=== PATIENT | female | born 1960 | race Caucasian/White ===

== ENCOUNTER 2020-03-01 16:55 | Observation (INO) ==
[2020-03-01 17:32] LABS: Basophils # (auto) 0.02 K/uL (0-0.2); Basophils % (auto) 0.4 %; Eosinophils # (auto) 0.06 K/uL (0-0.5); Eosinophils % (auto) 1.1 %; Hematocrit (blood only) 42.2 % (37-47); Hemoglobin 14.1 g/dL (12.0-16.0); Immature Granulocytes # (auto) 0.01 K/uL (0.00-0.02); Immature Granulocytes % (auto) 0.2 %; Lymphocytes # (auto) 1.48 K/uL (1.2-3.4); Lymphocytes % (auto) 26.1 %; Mean Corpuscular Hemoglobin 30.1 pg (25-34); Mean Corpuscular Hgb Conc 33.4 g/dL (32-36); Mean Platelet Volume 10.3 fL (7.4-10.4); Monocytes # (auto) 0.39 K/uL (0.11-0.59); Monocytes % (auto) 6.9 %; Neutrophils # (auto) 3.72 K/uL (1.4-6.5); Neutrophils % (auto) 65.3 %; Platelet Count 178 K/uL (130-400); RDW Coefficient of Variation 12.6 % (11.5-14.5); RDW Standard Deviation 41.2 fL (36.4-46.3); Red Blood Count 4.69 M/uL (4.2-5.4); White Blood Count 5.68 K/uL (4.8-10.8)
[2020-03-01 17:45] LABS: D Dimer 320 ug/L FEU (0-500); Partial Thromboplastin Time 28.4 Seconds (21.0-31.0); Prothrombin Time 10.7 Seconds (9.0-12.0)
[2020-03-01 17:49] LABS: Alanine Aminotransferase 22 U/L (12-78); Albumin Level 4.3 gm/dl (3.4-5.0); Aspartate Aminotransferase 17 U/L (15-37); BUN Creatinine Ratio 18.5 (10-20); Blood Urea Nitrogen 17 mg/dl (7-18); Carbon Dioxide 31 mmol/L (21-32); Chloride 106 mmol/L (98-107); Creatinine Clr Calc Pharmacy 72.1 ml/min; Est GFR (African American) 82.3; Glucose 98 mg/dl (70-99); Lipase 99 U/L (73-393); Potassium 3.7 mmol/L (3.5-5.1); Sodium 139 mmol/L (136-145)
[2020-03-01 17:54] LABS: Albumin Globulin Ratio 1.2 (0.9-2); Alkaline Phosphatase 92 U/L (45-117); Bilirubin,Total 0.4 mg/dl (0.2-1); Globulin 3.7 gm/dl (2.5-4.0); Troponin I < 0.015 ng/ml (0-0.045)
--- NOTE | 2020-03-01 18:00 | Emergency Department Note ---
Impression & Plan Dyspnea on exertion, Heart palpitations, Nonspecific ST-T wave electrocardiographic changes, Hypertension ED Provider Note NAME: PING MORAES AGE: 59 SEX: F : 1960 ARRIVES VIA: Walk-In INFORMANT: Patient ED PROVIDER(S): Fabian Holley DO CHIEF COMPLAINT: Pounding in her chest HPI: Patient is a 59-year-old female who presents the ER referred in by her PCP. She had an episode Friday when she went up a flight of stairs and felt like her heart was racing. She checked her heart rate and was in the low 100s. She felt her arms became very heavy. She was short of breath. She notes that she normally does not become short of breath with these episodes. She has spent some time recently immobilized due to an ankle fracture back in July and had some trouble. She notes that recently over the past 10 days she has been getting short of breath with exertion and on 3 occasions has had heaviness in her bilateral arms. She denies any chest pain. No nausea, vomiting or diarrhea. No dysuria urgency or frequency. ROS: See above HPI for pertinent positives & negatives. A total of 10 systems reviewed and were otherwise negative. PAST MEDICAL HISTORY:See Below PAST SURGICAL HISTORY:See Below FAMILY HISTORY:See Below SOCIAL HISTORY:See Below HOME MEDICATIONS:See Below ALLERGIES:See Below VITALS:See Below PHYSICAL EXAMINATION: GENERAL: Sitting up in bed, alert, well appearing, well nourished, no distress, non-toxic EYE EXAM: normal conjunctiva. OROPHARYNX: no exudate, no erythema, lips, buccal mucosa, and tongue normal and mucous membranes are moist NECK: supple, no nuchal rigidity, no adenopathy, non-tender LUNGS: Clear to auscultation. Normal chest wall mechanics HEART: no murmurs, S1 normal and S2 normal ABDOMEN: abdomen soft, non-tender, normo-active bowel sounds, no masses, no rebound or guarding. BACK: Back is symmetrical on inspection and there is no deformity, no midline tenderness, no CVA tenderness. SKIN: no rashes and no bruising UPPER EXTREMITIES: upper extremities are grossly normal. LOWER EXTREMITIES: No pitting edema. NEURO EXAM: Normal sensorium, cranial nerves II-XII grossly intact, normal speech, no gross weakness of arms, no gross weakness of legs. MEDICAL DECISION MAKING: Patient is a 59-year-old female who is fairly active that presents the ER for palpitations this past Friday. She has been having some intermittent shortness of breath with exertion as well as arm heaviness. She appeared more fatigued than usual. On presentation heart rate was up in the 100s and systolic blood pressures 160. IV was established blood work was obtained. D-dimer was negative. BMP with LFTs bilirubin and troponin was negative. Lipase was unremarkable. EKG ST wave changes in the inferior leads which is new in comparison to recent EKG performed on February 03, 2020 in [facility]. Patient was given a dose of aspirin. Question if this is lead placement versus a recent ischemic event. She denies any history of diabetes, hypertension, hyperlipidemia or CAD. Discussed with the patient and she was agreeable for observation. Discussed with Dr. Familia Pagan for further evaluation. Triage Nursing notes reviewed. Prior medical records reviewed Vital Signs: reviewed and remarkable for HTN and tachy Differential diagnosis: Differential diagnoses includes but is not limited to acute coronary syndrome, myocardial infarction, pericarditis, pulmonary embolus, aortic dissection, pneumonia, pneumothorax, musculoskeletal, shingles, esophageal. ER treatment provided: See below Diagnostics interpreted by me: ECG: Sinus rhythm rate of 92 Normal axis No PVCs Normal QTC ST wave changes in the inferior leads New from February 03, 2020 Cardiac Monitoring: An order was placed for continuous cardiac monitoring. The monitor shows a rate of 92 with sinus rhythm. Laboratory studies: As stated above and show below. Imaging studies: Portable AP upright 1 view of the chest shows no focal infiltrate or pneumothorax Consultation(s): Discussed with Dr. Familia Pagan for further evaluation ED COURSE: Procedures: none Critical Care: None Past Med/Surg History Medical History (Updated 03/01/20 @ 20:17 by Fabian Holley DO) No pertinent past medical history Surgical History No pertinent past surgical history Social History Smoking Status: Never smoker Feels Safe at Home: Yes Allergies Allergies Allergy/AdvReac Type Severity Reaction Status Date / Time No Known Allergies Allergy Verified 03/01/20 18:27 Home Meds Home Medications Medication Instructions Recorded Confirmed No Known Home Medications 03/01/20 03/01/20 Results & Data (ED) Vital Signs Vital Signs - 24 hr 03/01/20 17:06 03/01/20 17:20 03/01/20 17:23 Temperature 37.1 C Temperature Source Oral Pulse Rate 105 H 91 H Pulse Rate from SpO2 Sensor Respiratory Rate 20 21 Blood Pressure 160/99 H Blood Pressure Mean 119 Pulse Oximetry 96 Oxygen Delivery Method Room Air Room Air Sepsis Recent Fever Within 48 Hours No Sepsis New/Unexplained Change in Mental Status No Sepsis Action Taken by Nursing No Action Required 03/01/20 17:30 03/01/20 17:48 03/01/20 18:00 Temperature Temperature Source Pulse Rate 86 76 73 Pulse Rate from SpO2 Sensor 76 77 Respiratory Rate 18 18 12 Blood Pressure 147/91 H 136/82 Blood Pressure Mean 108 94 Pulse Oximetry 100 100 Oxygen Delivery Method Room Air Sepsis Recent Fever Within 48 Hours Sepsis New/Unexplained Change in Mental Status Sepsis Action Taken by Nursing 03/01/20 18:30 03/01/20 19:00 03/01/20 19:30 Temperature Temperature Source Pulse Rate 69 71 74 Pulse Rate from SpO2 Sensor 71 72 76 Respiratory Rate 14 16 16 Blood Pressure 131/82 136/85 163/103 H Blood Pressure Mean 110 106 127 Pulse Oximetry 98 99 97 Oxygen Delivery Method Room Air Room Air Room Air Sepsis Recent Fever Within 48 Hours Sepsis New/Unexplained Change in Mental Status Sepsis Action Taken by Nursing 03/01/20 20:00 Temperature Temperature Source Pulse Rate 69 Pulse Rate from SpO2 Sensor 70 Respiratory Rate 20 Blood Pressure 118/86 Blood Pressure Mean 99 Pulse Oximetry 97 Oxygen Delivery Method Room Air Sepsis Recent Fever Within 48 Hours Sepsis New/Unexplained Change in Mental Status Sepsis Action Taken by Nursing Laboratory Data Result diagrams: 03/01/20 17:22 03/01/20 17:22 Lab Results 03/01/20 03/01/20 03/01/20 Range/Units 17:22 17:22 17:22 WBC 5.68 (4.8-10.8) K/uL RBC 4.69 (4.2-5.4) M/uL Hgb 14.1 (12.0-16.0) g/dL Hct 42.2 (37-47) % MCV 90.0 (80-100) fL MCH 30.1 (25-34) pg MCHC 33.4 (32-36) g/dL RDW Std Deviation 41.2 (36.4-46.3) fL RDW Coeff of Bar 12.6 (11.5-14.5) % Plt Count 178 (130-400) K/uL MPV 10.3 (7.4-10.4) fL Immature Gran % (Auto) 0.2 % Neut % (Auto) 65.3 % Lymph % (Auto) 26.1 % [place] % (Auto) 6.9 % Eos % (Auto) 1.1 % Baso % (Auto) 0.4 % Neut # (Auto) 3.72 (1.4-6.5) K/uL Lymph # (Auto) 1.48 (1.2-3.4) K/uL [place] # (Auto) 0.39 (0.11-0.59) K/uL Eos # (Auto) 0.06 (0-0.5) K/uL Baso # (Auto) 0.02 (0-0.2) K/uL Immature Gran # (Auto) 0.01 (0.00-0.02) K/uL PT 10.7 (9.0-12.0) Seconds INR 1.0 (0.9-1.1) APTT 28.4 (21.0-31.0) Seconds PTT Ratio 1.0 D-Dimer 320 (0-500) ug/L FEU Sodium 139 (136-145) mmol/L Potassium 3.7 (3.5-5.1) mmol/L Chloride 106 (98-107) mmol/L Carbon Dioxide 31 (21-32) mmol/L Anion Gap 2.0 L (3-11) BUN 17 (7-18) mg/dl Creatinine 0.90 (0.6-1.2) mg/dl Est Cr Clr Drug Dosing 72.1 ml/min Est GFR ( Amer) 82.3 Est GFR (Non-Af Amer) 71.0 BUN/Creatinine Ratio 18.5 (10-20) Glucose 98 (70-99) mg/dl Calcium 10.0 (8.5-10.1) mg/dl Total Bilirubin 0.4 (0.2-1) mg/dl AST 17 (15-37) U/L ALT 22 (12-78) U/L Alkaline Phosphatase 92 (45-117) U/L Troponin I < 0.015 (0-0.045) ng/ml Total Protein 8.0 (6.4-8.2) gm/dl Albumin 4.3 (3.4-5.0) gm/dl Globulin 3.7 (2.5-4.0) gm/dl Albumin/Globulin Ratio 1.2 (0.9-2) Lipase 99 (73-393) U/L Administered Medications Discontinued Medications Aspirin (Aspirin Chew 324 Mg) 324 mg PO NOW STA Stop: 03/01/20 18:59 Last Admin: 03/01/20 19:25 Dose: 324 mg Documented by: [id number] Discharge Plan Visit Data Chief Complaint: Hypertension Stated Complaint: RAST HEART BEAT, WEAKNESS, ARMS TINGLING ED Provider: Fabian Holley Discharge Problem: Dyspnea on exertion, Heart palpitations, Nonspecific ST-T wave electrocardiographic changes, Hypertension Forms Stand Alone Forms: [employer] Prescriptions Prescriptions: No Action No Known Home Medications RF: 0 Discharge Problem: Hypertension Qualifiers: Hypertension type: unspecified Qualified Code(s): I10 - Essential (primary) hypertension
--- NOTE | 2020-03-01 18:03 | XRay Report ---
XR chest 1V portable HISTORY: 59 years-old Female Chest Pain acute atypical chest pain COMPARISON: None TECHNIQUE: Portable AP view of the chest FINDINGS: Cardiomediastinal and hilar silhouettes are within normal limits. No pneumothorax, pleural effusion, airspace consolidation or overt pulmonary edema. Bones of the chest appear grossly intact. IMPRESSION: No acute process. ACT 112: Negative or not required by law. The above report was generated using voice recognition software. It may contain grammatical, syntax o r spelling errors. Electronically signed by: Xavi Rendon M.D. 03/01/2020 6:02 PM
[2020-03-01] MEDS ORDERED: ASPIRIN CHEW 324 MG PO STA (18:58)
--- NOTE | 2020-03-01 19:58 | History & Physical Report ---
Date of Service March 01, 2020 Assessment & Plan (1) Heart palpitations: Heart palpitations/residual fatigue/nonspecific ST-T changes on EKG, new compared to previous- The patient will be admitted to telemetry for serial cardiac enzymes, serial EKG's, cardiac rhythm monitoring and a 2-D echocardiogram with Dopplers. Check a fasting lipid panel and hemoglobin A1c Concerning for possible ischemic or electrical event. If normal testing overnight, patient will get a stress echocardiogram in the a.m. Present on Admission?: Yes (2) Fatigue: See above Present on Admission?: Yes (3) Nonspecific ST-T wave electrocardiographic changes: See above Present on Admission?: Yes History of Present Illness Chief Complaint: The patient presents to the emergency department with complaint of persistent fatigue after an episode of increased heart rate with exercise and bilateral arm numbness that occurred 4 days ago. Primary Care Provider: Madeleine Lopze DO The patient is a 59-year-old female with past medical history including ankle fracture who presents to the emergency department with the above complaints. She has not had any recent travels or sick exposures. She denies any symptoms of upper respiratory infection or other signs of illness. Allergies Allergy/AdvReac Type Severity Reaction Status Date / Time No Known Allergies Allergy Verified 03/01/20 18:27 Home Medications Home Medications Medication Instructions Recorded Confirmed Type No Known Home Medications 03/01/20 03/01/20 History Past Med/Surg History Medical History (Updated 03/01/20 @ 20:05 by Familia Martinez MD) No pertinent past medical history Surgical History No pertinent past surgical history Social History Smoking Status: Never smoker Feels Safe at Home: Yes Review of Systems Review of Systems: The patient denies shortness of breath, dyspnea on exertion, cough, lower extremity swelling, sore throat, fevers, chills, sweats, nausea, vomiting, diarrhea , constipation, abdominal pain, pelvic pain, blood in urine or stool, dysuria, urinary frequency or urgency, lightheadedness, dizziness, headache, memory loss, loss of consciousness, rash, abnormal bruising or bleeding, imbalance, focal or generalized weakness, numbness or tingling in legs, generalized arthralgias or myalgias, back or neck pain, or night sweats. The review of systems is otherwise negative other than for that already noted ab ove, and at least 10 systems have been reviewed. Physical Exam Physical Exam: The patient is awake, alert and oriented 3, well developed and well nourished, normocephalic and atraumatic, lying in bed and in no acute distress. HEENT--PERRL, EOMI, mucous membranes and oropharynx normal. Neck--supple. No JVD. No bruits. Thyroid normal, trachea midline, no adenopathy. Heart--normal S1 and S2. No murmurs, rubs or gallops. Lungs--clear bilaterally, no respiratory distress, no accessory muscle use. Abdomen--normal bowel sounds and soft. Nontender. Nondistended Extremities--no cyanosis or clubbing. No edema. Dermatologic--2 cm diameter circular erythematous patch in left axilla Neurologic--cranial nerves II through XII grossly intact. Rheumatologic--normal range of motion. Psychiatric--normal affect. Results & Data Results & Data ([facility]) Vital Signs (Past 12 Hours) Vital Signs Temp Pulse Resp BP Pulse Ox 03/01/20 19:00 71 16 136/85 99 03/01/20 18:30 69 14 131/82 98 03/01/20 18:00 73 12 136/82 100 03/01/20 17:48 76 18 147/91 H 100 03/01/20 17:30 86 18 03/01/20 17:23 91 H 21 03/01/20 17:06 98.8 F 105 H 20 160/99 H 96 Laboratory Results Laboratory Results WBC 5.68 K/uL (4.8-10.8) 03/01/20 17:22 RBC 4.69 M/uL (4.2-5.4) 03/01/20 17:22 Hgb 14.1 g/dL (12.0-16.0) 03/01/20 17:22 Hct 42.2 % (37-47) 03/01/20 17:22 MCV 90.0 fL (80-100) 03/01/20 17:22 MCH 30.1 pg (25-34) 03/01/20 17:22 MCHC 33.4 g/dL (32-36) 03/01/20 17:22 RDW Std Deviation 41.2 fL (36.4-46.3) 03/01/20 17: RDW Coeff of Bar 12.6 % (11.5-14.5) 03/01/20 17: Plt Count 178 K/uL (130-400) 03/01/20 17:22 MPV 10.3 fL (7.4-10.4) 03/01/20 17:22 Immature Gran % (Auto) 0.2 % 03/01/20 17:22 Neut % (Auto) 65.3 % 03/01/20 17:22 Lymph % (Auto) 26.1 % 03/01/20 17:22 [place] % (Auto) 6.9 % 03/01/20 17: Eos % (Auto) 1.1 % 03/01/20 17: Baso % (Auto) 0.4 % 03/01/20 17: Neut # (Auto) 3.72 K/uL (1.4-6.5) 03/01/20 17:22 Lymph # (Auto) 1.48 K/uL (1.2-3.4) 03/01/20 17:22 [place] # (Auto) 0.39 K/uL (0.11-0.59) 03/01/20 17:22 Eos # (Auto) 0.06 K/uL (0-0.5) 03/01/20 17:22 Baso # (Auto) 0.02 K/uL (0-0.2) 03/01/20 17: Immature Gran # (Auto) 0.01 K/uL (0.00-0.02) 03/01/20 17:22 PT 10.7 Seconds (9.0-12.0) 03/01/20 17: INR 1.0 (0.9-1.1) 03/01/20 17: APTT 28.4 Seconds (21.0-31.0) 03/01/20 17:22 PTT Ratio 1.0 03/01/20 17: D-Dimer 320 ug/L FEU (0-500) 03/01/20 17:22 Sodium 139 mmol/L (136-145) 03/01/20 17:22 Potassium 3.7 mmol/L (3.5-5.1) 03/01/20 17:22 Chloride 106 mmol/L (98-107) 03/01/20 17:22 Carbon Dioxide 31 mmol/L (21-32) 03/01/20 17:22 Anion Gap 2.0 (3-11) L 03/01/20 17:22 BUN 17 mg/dl (7-18) 03/01/20 17:22 Creatinine 0.90 mg/dl (0.6-1.2) 03/01/20 17:22 Est Cr Clr Drug Dosing 72.1 ml/min 03/01/20 17:22 Est GFR ( Amer) 82.3 03/01/20 17:22 Est GFR (Non-Af Amer) 71.0 03/01/20 17:22 BUN/Creatinine Ratio 18.5 (10-20) 03/01/20 17:22 Glucose 98 mg/dl (70-99) 03/01/20 17:22 Calcium 10.0 mg/dl (8.5-10.1) 03/01/20 17:22 Total Bilirubin 0.4 mg/dl (0.2-1) 03/01/20 17:22 AST 17 U/L (15-37) 03/01/20 17:22 ALT 22 U/L (12-78) 03/01/20 17:22 Alkaline Phosphatase 92 U/L (45-117) 03/01/20 17:22 Troponin I < 0.015 ng/ml (0-0.045) 03/01/20 17:22 Total Protein 8.0 gm/dl (6.4-8.2) 03/01/20 17:22 Albumin 4.3 gm/dl (3.4-5.0) 03/01/20 17:22 Globulin 3.7 gm/dl (2.5-4.0) 03/01/20 17:22 Albumin/Globulin Ratio 1.2 (0.9-2) 03/01/20 17:22 Lipase 99 U/L (73-393) 03/01/20 17:22 Diagnostic Findings [facility], [place] [phone] XRay Report Patient: PING MORAESAdmit Date: 03/01/20 MR#: [id number]: [address] Acct ID:[id number]: Date: 1960City Zip: [place] [address] Age: 59Location: ED Sex: FRoom/Bed: Att Phy:Diagnosis: RAST HEART BEAT, WEAKNESS, ARMS TINGLING Amparo Phy: Madeleine Lopez D.O.Service Date: 03/01/20 Fam Phy:Interpreting Phy: Ac Rendon Admit Phy: Ordering Phy: Fabian Holley, cc: ~ XR chest 1V portable HISTORY: 59 years-old Female Chest Pain acute atypical chest pain COMPARISON: None TECHNIQUE: Portable AP view of the chest FINDINGS: Cardiomediastinal and hilar silhouettes are within normal limits. No pneumothorax, pleural effusion, airspace consolidation or overt pulmonary edema. Bones of the chest appear grossly intact. IMPRESSION: No acute process. ACT 112: Negative or not required by law. The above report was generated using voice recognition software. It may contain grammatical, syntax or spelling errors. Electronically signed by: Xavi Rendon M.D. 03/01/2020 6:02 PM Dictated: 03/01/20 180 Transcribed: 03/01/20 180 Code Status & VTE Plan Code Status Full code VTE Prophylaxis Plan VTE Prophylaxis will be ordered: Yes PG Care Time/CCT Total # of Minutes Spent Total Time Spent with Patient: Total time spent is greater than 50% in coordination of care (as documented) at patient's floor/unit and/or counseling patient: Coding Level of Care Code 50140 OBS Care - Level 3 Diagnoses Heart palpitations R00.[address]-T wave electrocardiographic changes R94.31
[2020-03-01] MEDS ORDERED: NITROGLYCERIN SL 0.4 MG/TAB TAB SL PRN (21:26)
[2020-03-01] MEDS ORDERED: ALUMINUM/MAGNESIUM SUSP 30 ML UDC PO PRN (21:26)
[2020-03-01] MEDS ORDERED: ONDANSETRON INJ 2 MG/ML 2 ML VIAL IV PRN (21:26)
[2020-03-01] MEDS ORDERED: MAGNESIUM HYDROXIDE SUSP 30 ML UDC PO PRN (21:26)
[2020-03-01] MEDS ORDERED: ACETAMINOPHEN 325 MG TAB PO PRN (21:26)
[2020-03-02] MEDS ORDERED: ASPIRIN 81 MG ECTAB PO SCH (09:00)
--- NOTE | 2020-03-02 16:12 | Discharge Summary ---
Date of Service March 02, 2020 Admission HPI Per Admitting Provider The patient is a 59-year-old female with past medical history including ankle fracture who presents to the emergency department with the above complaints. She has not had any recent travels or sick exposures. She denies any symptoms of upper respiratory infection or other signs of illness. Principal Diagnosis Palpitations -> Possible AVRT or AVNRT, but not certain. Arm numbness Discharge Exam Constitutional WD/WN, vitals as above Eyes EOM intact bilaterally; no conjunctival abnormality ENMT external ear and nose normal, oropharynx normal Neck trachea midline, no thyromegaly normal visual inspection Respiratory normal respiratory effort, lungs clear to auscultation no respiratory distress Cardiovascular RRR, no murmur, no edema Gastrointestinal (Abdomen) Inspection/Auscultation: abdomen normal to inspection; abdomen not distended Musculoskeletal no cyanosis or clubbing, extremities motor strength 5/5 Skin no rashes, warm and dry Neurologic moves all extremities and awake Psychiatric Orientation: alert, oriented to person and cooperative Discharge Data Allergies Allergy/AdvReac Type Severity Reaction Status Date / Time No Known Allergies Allergy Verified 03/01/20 18:27 Consultations 03/01/20 18:58 ED Decision to Admit Stat 03/01/20 21:26 Consult Case Management - Discharge Planning Routine Hospital Course (1) Heart palpitations: Heart palpitations/residual fatigue/nonspecific ST-T changes on EKG, new compared to previous- - Troponins were all negative and stress test was normal. - Unclear why she had EKG changes. By the day of discharge, EKG was normal sinus with no ST or T wave abnormalities. - Discussed that palpitations could be an AV node re-entrant tachycardia. She will try vagal maneuvers if it occurs again to see if this breaks it. If it does, or if palpations recur, she could consider a Holter monitor for 2-4 weeks. For her arm numbness/heaviness, we discussed possible etiologies including myasthenia gravis, MS, or the polymyositis. She will pursue further work-up with her PCP. (2) Fatigue: See above (3) Nonspecific ST-T wave electrocardiographic changes: See above Total Time Total Time Spent Total Time Spent (In Minutes): 35 Discharge Plan Discharge Items Patient Disposition: Home - Self-Care Reason For Visit: FAST HEART BEAT, WEAKNESS, ARMS TINGLING Discharge Diagnosis: Possible AV node arrhythmia Activity: Resume your previous activity Non-emergency contact: Primary Care Provider Call non-emergency contact if: your symptoms worsen Follow-up/Referrals: Madeleine Lopez, [Primary Care Provider] - 03/07/20 9:50 am (Please call [phone] if you need to reschedule this appointment.) Diet: Regular Addtl Attending Provider Instructions: Ms. Chávez, Neno were admitted to the hospital with palpitations and arm heaviness. The palp itations had resolved by the time you were here, and they did not recur. We did cardiac testing which showed that you DID NOT have a heart attack. Your stress test was also normal which indicates to us that your future risk of heart attack is also low. The palpitations sound most like something called AV node tachycardia which is a benign condition where your heart races for a limited amount of time. We did not see any arrythmias in the hospital, but you also did not have an episode of palpitations while here. If the palpitations come back, please try vagal maneuvers such as bearing down, tipping back, or massage your jaw/neck. If this doesn't work, please call your doctor. If these episodes occur more frequently, your doctor may prescribe a Holter monitor which is a sticker that you stick to your chest for 2-4 weeks and monitors your heart rhythm for a longer period of time. For your finger numbness, please try the wrist splints overnight as we discussed. If you have more neurologic issues (shooting pains, numbness, etc.), please follow up with your PCP who may refer you to a neurologist. Pending Studies at Discharge: No Stand-Alone Forms: [facility] [employer], Smoking Cessation Medications and DC Order Prescriptions: Continued No Known Home Medications RF: 0 Discharge Orders: Discharge Order (Routine); Ordered 03/02/20 Ordered By: Juan Moura Admission Data Admit Date/Time: 03/01/20 19:55 Attending Provider: Juan Moura Admit Provider: Familia Martinez Primary Care Provider: Madeleine Lopez Other Providers: Juan Moura Other Interventions: Discharge Summary Assessment (RN) Last Done: 03/02/20 14:15 Coding Level of Care Code 12224 OBS Care - Discharge Diagnoses Heart palpitations R00.[address]-T wave electrocardiographic changes R94.31
--- NOTE | 2020-03-02 19:10 | XCELERA ---
[id number]
--- NOTE | 2020-03-02 19:52 | Electrocardiogram Report ---
Test Reason : Blood Pressure : / mmHG Vent. Rate : 092 BPM Atrial Rate : 092 BPM P-R Int : 146 ms QRS Dur : 094 ms QT Int : 360 ms P-R-T Axes : 062 066 008 degrees QTc Int : 445 ms Normal sinus rhythm Nonspecific ST abnormality Abnormal ECG No previous ECGs available Confirmed by Jayant Pierre ([id number]) on 03/02/2020 7:51:40 PM Referred By: Madeleine Lopez Confirmed By:Jayant Pierre
--- NOTE | 2020-03-02 20:02 | Electrocardiogram Report ---
Test Reason : Blood Pressure : / mmHG Vent. Rate : 067 BPM Atrial Rate : 067 BPM P-R Int : 188 ms QRS Dur : 090 ms QT Int : 426 ms P-R-T Axes : 072 073 059 degrees QTc Int : 450 ms Normal sinus rhythm Normal ECG When compared with ECG of 01-MAR-2020 17:15, T wave inversion no longer evident in Inferior leads Confirmed by Jayant Pierre ([id number]) on 03/02/2020 8:02:14 PM Referred By: Madeleine Lopez Confirmed By:Jayant Pierre
== END 2020-03-02 14:51 | disposition home or self-care (01) ==
LOC: ED 16:55 → 2W 16:55 → SUATTDRO 19:55 → 2W 20:54